=== PATIENT | female | born 1990 | race Caucasian/White ===

== ENCOUNTER 2017-09-04 12:55 | Emergency (ER) | payer BC ==
[2017-09-04] MEDS ORDERED: Ondansetron 4 MG/2 ML SDV IVPUSH ONE (13:38)
[2017-09-04] MEDS ORDERED: Sodium Chloride 0.9% 1,000 ML IV ONE (13:38)
--- NOTE | 2017-09-04 14:50 | EDM.PDOC ---
ED HPI GENERAL MEDICAL PROBLEM - General Chief Complaint: Gastrointestinal Problem Stated Complaint: NAUSEA,DIARRHEA,VOMITNG Time Seen by Provider: 09/04/17 13:03 Source of Information: Reports: Patient History Limitations: Reports: No Limitations - History of Present Illness INITIAL COMMENTS - FREE TEXT/NARRATIVE: Presents to the ER reporting a 10 day history of diarrhea. Over the last 24-48 hours she has had some nausea and vomited a large amount once. She states she lost about 15 pounds due to inability to eat. She states that it feels like she has a "knot" in the epigastric area. The diarrhea alternates between a gravy consistency and water with chunks. She denies foreign travel or ill contacts. No fever. umbilical Pain Score (Numeric/FACES): 3 - Related Data Allergies Allergy/AdvReac Type Severity Reaction Status Date / Time No Known Allergies Allergy Verified 09/04/17 13:03 Home Meds: Home Meds Ondansetron [Zofran ODT] 4 mg PO Q6H PRN #3 tab.dis 09/04/17 [Rx] PARoxetine [Paxil] 10 mg PO DAILY 09/04/17 [History] Past Medical History HEENT History: Reports: Impaired Vision Cardiovascular History: Reports: None Respiratory History: Reports: Asthma Gastrointestinal History: Reports: None Genitourinary History: Reports: None EVP [place] History: Reports: None Musculoskeletal History: Reports: None Neurological History: Reports: None Psychiatric History: Reports: Anxiety Hematologic History: Reports: None Immunologic History: Reports: None Oncologic (Cancer) History: Reports: None Dermatologic History: Reports: None - Past Surgical History Head Surgeries/Procedures: Reports: None HEENT Surgical History: Reports: Tonsillectomy Cardiovascular Surgical History: Reports: None GI Surgical History: Reports: None Female Surgical History: Reports: None Endocrine Surgical History: Reports: None Neurological Surgical History: Reports: None Musculoskeletal Surgical History: Reports: None Oncologic Surgical History: Reports: None Dermatological Surgical History: Reports: None Social & Family History - Family History Family Medical History: Noncontributory - Tobacco Use Smoking Status *Q: Current Every Day Smoker Years of Tobacco use: 2 Packs/Tins Daily: 0.3 - Caffeine Use Caffeine Use: Reports: Coffee, Energy Drinks, Soda, Tea - Recreational Drug Use Recreational Drug Use: No ED ROS GENERAL - Review of Systems Review Of Systems: ROS reveals no pertinent complaints other than HPI. ED EXAM, GI/ABD - Physical Exam Exam: See Below Exam Limited By: No Limitations General Appearance: Alert, No Apparent Distress Ears: Normal External Exam Nose: Normal Inspection Throat/Mouth: Normal Inspection Head: Atraumatic, Normocephalic Neck: Normal Inspection Respiratory/Chest: No Respiratory Distress, Lungs Clear, Normal Breath Sounds Cardiovascular: Normal Peripheral Pulses, Regular Rate, Rhythm, No Murmur GI/Abdominal Exam: Normal Bowel Sounds, Soft, Non-Tender, No Distention Back Exam: Normal Inspection Extremities: Normal Inspection, Normal Range of Motion Neurological: Alert, Oriented Psychiatric: Normal Affect, Normal Mood Skin Exam: Warm, Dry, Intact, Normal Color, No Rash Lymphatic: No Adenopathy Course - Vital Signs Last Recorded V/S: Last Vital Signs Temp 36.3 C 09/04/17 15:18 Pulse 64 09/04/17 15:18 Resp 16 09/04/17 15:18 BP 115/55 L 09/04/17 15:18 Pulse Ox 99 09/04/17 15:18 - Orders/Labs/Meds Labs: Laboratory Tests 09/04/17 09/04/17 09/04/17 Range/Units 13:37 14:30 14:30 WBC 11.73 H (4.0-11.0) K/uL RBC 4.28 L (4.30-5.90) M/uL Hgb 12.1 (12.0-16.0) g/dL Hct 37.5 (36.0-46.0) % MCV 87.6 (80.0-98.0) fL MCH 28.3 (27.0-32.0) pg MCHC 32.3 (31.0-37.0) g/dL RDW Std Deviation 44.4 (28.0-62.0) fl RDW Coeff of Rafa 14 (11.0-15.0) % Plt Count 330 (150-400) K/uL MPV 9.30 (7.40-12.00) fL Add Manual Diff YES Neutrophils % (Manual) 48 (48.0-80.0) % Lymphocytes % (Manual) 27 (16.0-40.0) % Monocytes % (Manual) 4 (0.0-15.0) % Eosinophils % (Manual) 21 H (0.0-7.0) % Nucleated RBC % 0.0 /100WBC Absolute Seg Neuts 5.6 (1.4-5.7) Lymphocytes # (Manual) 3.2 H (0.6-2.4) Monocytes # (Manual) 0.5 (0.0-0.8) Eosinophils # (Manual) 2.5 H (0.0-0.7) Nucleated RBCs # 0 K/uL Sodium 140 (136-145) mmol/L Potassium 3.8 (3.5-5.1) mmol/L Chloride 105 (98-107) mmol/L Carbon Dioxide 25.3 (21.0-32.0) mmol/L BUN 7 (7.0-18.0) mg/dL Creatinine 0.7 (0.6-1.0) mg/dL Est Cr Clr Drug Dosing 106.09 mL/min Estimated GFR (MDRD) > 60.0 ml/min Glucose 93 (74-106) mg/dL Calcium 8.6 (8.5-10.1) mg/dL Total Bilirubin 0.3 (0.2-1.0) mg/dL AST 27 (15-37) IU/L ALT 30 (14-63) IU/L Alkaline Phosphatase 115 (46-116) U/L Total Protein 7.0 (6.4-8.2) g/dL Albumin 3.2 L (3.4-5.0) g/dL Globulin 3.8 H (2.0-3.5) g/dL Albumin/Globulin Ratio 0.8 L (1.3-2.8) Amylase 21 L (25-115) U/L Lipase 41 L (73-393) U/L Urine Color YELLOW Urine Appearance CLOUDY Urine pH 6.0 (5.0-8.0) Ur Specific [place] >= 1.030 (1.001-1.035) Urine Protein TRACE (NEGATIVE) mg/dL Urine Glucose (UA) NEGATIVE (NEGATIVE) mg/dL Urine Ketones TRACE H (NEGATIVE) mg/dL Urine Occult Blood NEGATIVE (NEGATIVE) Urine Nitrite NEGATIVE (NEGATIVE) Urine Bilirubin SMALL H (NEGATIVE) Urine Ictotest Urine Urobilinogen 1.0 (<2.0) EU/dL Ur Leukocyte Esterase NEGATIVE (NEGATIVE) Urine RBC 0-2 (0-2/HPF) Urine WBC 0-2 (0-5/HPF) Ur Epithelial Cells MODERATE (NONE-FEW) Calcium Oxalate Crystal FEW (NEGATIVE) Amorphous Sediment LIGHT (NEGATIVE) Urine Bacteria FEW (NEGATIVE) Urine Mucus MODERATE (NONE-MOD) Urinalysis Comment Meds: Medications Discontinued Medications Generic Name Dose Route Start Last Admin Trade Name Jonq PRN Reason Stop Dose Admin Sodium Chloride 1,000 mls @ 999 mls/hr 09/04/17 13:38 09/04/17 13:52 Normal Saline IV 09/04/17 14:38 999 mls/hr STAT ONE Administration Ondansetron HCl 4 mg 09/04/17 13:38 09/04/17 13:56 Zofran IVPUSH 09/04/17 13:39 4 mg ONETIME ONE Administration Departure - Departure Time of Disposition: 15:48 Disposition: Home, Self-Care 01 Condition: Good Clinical Impression: Diarrhea Qualifiers: Diarrhea type: unspecified type Qualified Code(s): R19.7 - Diarrhea, unspecified - Discharge Information Referrals: Ahmet Fields MD [Primary Care Provider] - Forms: ED Department Discharge Additional Instructions: 1. Please follow up in primary care if the diarrhea continues. Take a stool specimen with you as your labs here where normal. You may refrigerate overnight if needed. 2. Zofran every 8 hours as needed for nausea. Drink plenty of clear liquids. Avoid dairy products for next 24 hours. 3. Immodium OTC (2 mg) after every liquid stool up to 8 tabs daily for diarrhea.
[2017-09-04 15:15] LABS: CHLORIDE,CL 105 mmol/L (98-107); SODIUM,NA 140 mmol/L (136-145)
[2017-09-04 16:38] VITALS: BP 102/58
== END 2017-09-04 16:38 | disposition home or self-care (01) ==
LOC: MW.ED 12:55
DX: R19.7 Diarrhea, unspecified (principal); F17.210 Nicotine dependence, cigarettes, uncomplicated; Z79.899 Other long term (current) drug therapy
CPT/HCPCS: 36415; 80053; 81001; 82150; 83690; 85025; 96361; 96374; 99284; J2405; J7040; 99282